=== PATIENT | male | born 1965 | race Caucasian/White ===

== ENCOUNTER 2023-10-24 12:35 | Outpatient (CLI) | payer OTHER, SELFPAY ==
[2023-10-24 13:03] LABS: Anion Gap 10 mmol/L (4-12); Blood Urea Nitrogen 14 mg/dL (9-20); Calcium 9.8 mg/dL (8.4-10.2); Carbon Dioxide 25 mmol/L (22-30); Chloride 104 mmol/L (98-107); Estimated Glomerular Filt Rate > 60; Glucose 100 mg/dL (65-110); Potassium 4.1 mmol/L (3.4-5.0); Sodium 139 mmol/L (137-145)
== END 2023-10-24 12:36 | disposition home or self-care (01) ==
LOC: ANHLAB 12:37
PROVIDERS: Visit Provider Anesthesiology
DX: Z01.818 Encounter for other preprocedural examination (principal)
CPT/HCPCS: 36415; 80048

== ENCOUNTER 2023-11-01 06:15 | Day surgery (SDC) | payer OTHER, SELFPAY ==
[2023-10-18 15:04] VITALS: BMI 27.1
--- NOTE | 2023-11-01 07:10 | P.OP_ITS ---
Procedure Note - Detailed Date of Procedure 11/01/23 Pre-op Diagnosis L SF mucous cyst and left dorsal hand lesion Post-op Diagnosis Same Procedure Performed excisin L SF mucous cyst, L SF p3 osteophyte and left hand lesion Surgeon Donavan Arias MD Humanities Teacher deo antunez pa-c Anesthesia MAC Description of Procedure INFORMED CONSENT: The patient was seen and examined and marked in the pre-op area.? The patient signed the consent form. PROCEDURE IN DETAIL:The patient taken back to OR on the stretcher in supine position. Time out performed with anesthesia, surgeon and staff agreeing on patient's name site and surgery to be performed SCDs were placed on the lower extremities and inflated. A tourniquet was placed on {left} upper extremity and antibiotics given IV After anesthesia administered sedation I injected {6}cc 1%lido and 0.5% marcaine plain for digital block in the palm and around dorsal hand lesion The?{left upper extremity}?was prepped and draped in sterile fashion the??{left upper extremity} was? exsanguinated with Esmarch bandage and tourniquet inflated to 250mmHg I proceeded with making an elliptical incision around the thinned affected skin of the left small finger mucous cyst through skin and dermis with a 15 blade scalpel. I.e. carried this incision proximally distally to elevated skin flaps radially and ulnarly. I proceeded with circumferential dissection of the cyst down to the D IP joint capsule where was resected. I reflected the perio steum identify a large osteophyte on the distal phalanx. This was rongeured until smooth. I irrigated with normal saline and closed the capsule with 5 0 Vicryl. Even with wide undermining I was unable to achieve adequate primary closure the resected skin area. I proceeded with making a larger semi circular back cut to create a rotation advancement flap. This was rotated distally allowing closure of the defect with 4-0 chromic suture I now turned my attention to the left dorsal hand lesion or proceeded with making elliptical incision with 2 mm margins around the mass through skin and d ermis. I extended this incision proximally and distally to account for and remove excess skin for dog ears. The diameter of excison measured 2.1x1.2cm I proceeded with resecting the mass in the subdermal plane. I proceeded with further undermining of the skin flaps. And closed with 3-0 Vicryl and 4-0 chromic suture. The length of closure was 3.5cm A dressing of xeroform, 4x4, tube gauze, luis, and an latisha bandage after the tourniquet was let down noting the hand was warm and well perfused. The patient was then awaken from anesthesia and transferred to the recovery room in stable condition.? Complications - none EBL- 0cc Disposition - home in stable conditions deo shabazz pa-c was essential for positioning, retraction, closure and dressing placement [facility] [place] Surgery - Charge Forward: Surgery Billing ([id number] same codes for deo adding modifier )
--- NOTE | 2023-11-01 07:10 | WPDHPUPDATE1 ---
History and Physical Update Update Date/Time: 11/01/23 07:10 Patient seen and examined in pre-operative holding area. No interval change in medical history or symptoms. Patient recalls previous discussion of benefits and alternatives to procedure. Continues to desire to proceed with left small finger mucous cyst and osteophyte excision and left fourth metacarpophalangeal joint lesion excsiion. Reviewed procedure, post-op expectations and risks including but not limited to bleeding, infection, injury to tendon/nerve/vessel, decreased hand function, stiffness, RSD, recurrence, no change or worsening of symptoms. I discussed the possible use of assistants and their participation in the case. Patient stated understanding and signed the consent form wishing to proceed.
--- NOTE | 2023-11-01 07:12 | P.PNAN_ITS ---
Anes - Initial Pre Proc Eval Procedure: Operation Date: 11/01/23 08:30 Proposed Procedures p Excision Left Small Finger Mucos Cyst and Osteophyte, Excision Left Fourth Metatarsophalangeal Joint Lesion - Donavan Arias MD Date/Time: 11/01/23 07:12 Surgeon: Donavan Arias MD Pre Op Diagnosis: Ganglion Cyst Left Small Finger Patient Data Age: 58 Gender: M Height: 1.83 m Weight: 91 kg Allergies Allergy/AdvReac Type Severity Reaction Status Date / Time No Known Allergies Allergy Verified 10/18/23 15:03 Home Medications Medication Instructions Recorded Confirmed Type atorvastatin 10 mg tablet 10 mg PO DAILY 10/02/23 10/18/23 History lisinopril 10 1 tablet PO DAILY 10/02/23 10/18/23 History mg-hydrochlorothiazide 12.5 mg tablet Results Review: All pre-operative results and documents have been reviewed as part of the pre- operative evaluation. [facility] Social History Social History (Updated 10/02/23 @ 10:51 by Jaky Sales MA) Smoking status: Never smoker Do You Feel Safe in your Home?: Yes Lack of Transportation: No Lack of Food: Never True Current Housing: I Have Housing Concerned About Future Housing: No Difficulty Paying Gas/Electric Bills: No Difficulty Paying for Meds: No Currently Unemployed: No Education: Associate Degree Difficulty w/ Childcare or Family Care: No Anes - Eval Final PreProcedure Day of Procedure 11/01/23 07:12 Results Review: All pre-operative results and documents have been reviewed as part of the pre- operative evaluation. Informed Consent: The patient's anesthetic plan and its attendant risks and benefits were discussed with the patient/family/POA. Questions were solicited and answers provided to the satisfaction of the patient/family/POA. Hypertension (Cardio) Most Recent Cardiac Tests: No Data to Display Hyperlipidemia Most Recent Cardiac Tests: No Data to Display
--- NOTE | 2023-11-01 07:16 | WPDANESEPPF ---
Anes - Initial Pre Proc Eval Procedure: Operation Date: 11/01/23 08:30 Proposed Procedures p Excision Left Small Finger Mucos Cyst and Osteophyte, Excision Left Fourth Metatarsophalangeal Joint Lesion - Donavan Arias MD Date/Time: 11/01/23 07:16 Surgeon: Donavan Arias MD Pre Op Diagnosis: Ganglion Cyst Left Small Finger Patient Data Age: 58 Gender: M Height: 1.83 m Weight: 91 kg Allergies Allergy/AdvReac Type Severity Reaction Status Date / Time No Known Allergies Allergy Verified 11/01/23 07:29 Home Medications Medication Instructions Recorded Confirmed Type atorvastatin 10 mg tablet 10 mg PO DAILY 10/02/23 11/01/23 History lisinopril 10 1 tablet PO DAILY 10/02/23 10/18/23 History mg-hydrochlorothiazide 12.5 mg tablet tramadol 50 mg tablet 50 mg PO Q6H PRN pain #12 tabs 11/01/23 Rx Patient hx anesthesia problems: none Family hx anesthesia problems: none Results Review: All pre-operative results and documents have been reviewed as part of the pre-operative evaluation. [facility] Social History Social History (Updated 10/02/23 @ 10:51 by Jaky Sales MA) Smoking status: Never smoker Do You Feel Safe in your Home?: Yes Lack of Transportation: No Lack of Food: Never True Current Housing: I Have Housing Concerned About Future Housing: No Difficulty Paying Gas/Electric Bills: No Difficulty Paying for Meds: No Currently Unemployed: No Education: Associate Degree Difficulty w/ Childcare or Family Care: No Anes - Eval Final PreProcedure Day of Procedure 11/01/23 07:16 Patient weight: overweight Heart: regular rate and rhythm Lungs: clear to auscultation Airway: Mallampati scale class II Neurological: alert and oriented Last oral intake: >/= 8 hours ASA classification: II Emergent: no Anesthetic plan: proceed Anesthesia type and monitoring: general GIVS Results Review: All pre-operative results and documents have been reviewed as part of the pre-operative evaluation. Informed Consent: The patient's anesthetic plan and its attendant risks and benefits were discussed with the patient/family/POA. Questions were solicited and answers provided to the satisfaction of the patient/family/POA.
[2023-11-01 07:34] VITALS: BP 143/91; PULSE 88; RESP 18; TEMP 37.1; O2SAT 99
[2023-11-01 07:36] VITALS: BMI 27.2
[2023-11-01] MEDS: LACTATED RINGERS 1,000 ML 30 ML IV CONT (07:58)
[2023-11-01] MEDS: ceFAZolin SODIUM 2 GM/20 ML SW SYRINGE IV PUSH (08:45)
[2023-11-01] MEDS: LIDOCAINE HCL 1% LOCAL INJ 10 ML VIAL 4 ML INFILTRATE (09:10)
[2023-11-01 09:25] VITALS: BP 106/80; PULSE 66; RESP 16; O2SAT 98
--- NOTE | 2023-11-01 09:30 | WPDANESPN ---
Anes - Prog Note Post-Op Date/Time: 11/01/23 09:30 Cardiovascular status: normal Respiratory status: normal Airway patency: baseline Mental status: baseline Post-Op hydration status: normal Vital Signs: Last Vital Signs Temp 37.1 C 11/01/23 07:34 Pulse 88 11/01/23 07:34 Resp 18 11/01/23 07:34 BP 143/91 H 11/01/23 07:34 Pulse Ox 99 11/01/23 07:34 O2 Del Method Room Air 11/01/23 07:34 Pain Score (VAS): 0 Post-procedural complaints: none Patient Feedback: Patient satisfied with anesthetic care.
[2023-11-01 09:50] VITALS: BP 122/86; PULSE 66; RESP 18; O2SAT 99
== END 2023-11-01 10:01 | disposition home or self-care (01) ==
PROVIDERS: Visit Provider Plastic Surgery
PROC: (CPT 26160; principal; 2023-11-01 08:30)
DX: M71.342 Other bursal cyst, left hand (principal); R22.32 Localized swelling, mass and lump, left upper limb
CPT/HCPCS: 26160; 26111

== ENCOUNTER 2023-11-01 08:42 | Outpatient (NON) | payer OTHER, SELFPAY | END 2023-11-01 08:43 | disposition home or self-care (01) | PROVIDERS: Visit Provider Plastic Surgery | DX: M67.442 Ganglion, left hand (principal) | CPT/HCPCS: 88304; 88305 ==